=== PATIENT | female | born 1970 | race Caucasian/White ===

== ENCOUNTER → 2024-12-06 | Outpatient (CLI) | payer OTHER, SELFPAY ==
--- NOTE | 2024-12-06 12:44 | CT_ITS ---
PROCEDURE: CHEST WITH CONTRAST 12/06/2024 REASON FOR EXAM: RETROSIGMOID CA-STAGING Recent colectomy. TECHNIQUE: CHEST WITH CONTRAST Coronal and Sagittal reconstruction series were provided. CONTRAST: Isovue-300 VOLUME: 100 mL One or more dose reduction techniques were used (e.g., Automated exposure control, adjustment of the mA and/or kV according to patient size, use of iterative reconstruction technique). RADIATION DOSE SUMMARY: CTDlvol: 14.8 mGy DLP: 567.28 mGycm COMPARISON: None FINDINGS: Hardware: None Lymph nodes: No mediastinal lymph nodes. Heart and Vasculature: The heart is nonenlarged. No coronary artery calcification is seen. Thoracic aorta and pulmonary arteries are unremarkable. Lungs and Airways: The lungs are well aerated. No infiltrate or pulmonary nodule seen. Elevation of the right hemidiaphragm. Pleura: No pleural effusion. Upper Abdomen: Unremarkable Bones: Degenerative changes of the thoracic spine. CT/Chest WITH Contrast IMPRESSION: Coronary artery calcification (CAC) is is absent No pulmonary infiltrate or mass lesion. Reading Location: [id number]
[2024-12-06 13:29] LABS: CREATININE FINGERSTICK < 1.0 mg/dL (0.55-1.02); EGFR FINGERSTICK > 60.0000 mL/min (>60)
== END | disposition home or self-care (01) ==
PROVIDERS: PCP Family Medicine; Referring Provider Internal Medicine Hematology & Oncology; Visit Provider Internal Medicine Hematology & Oncology
DX: C19 Malignant neoplasm of rectosigmoid junction (principal)
CPT/HCPCS: 71260; Q9967

== ENCOUNTER 2024-12-13 08:56 | Day surgery (SDC) | payer OTHER, SELFPAY ==
[2024-12-13] VITALS (9 sets, daily range): BP systolic 125–140; BP diastolic 84–91; PULSE 71–99; RESP 16–20; TEMP 36.5–36.7; O2SAT 97–100; BMI 37.4
--- NOTE | 2024-12-13 09:11 | PCM.HP.BLA ---
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 Required: No Is patient in pain?: No Allergies No Known Allergies Allergy (Verified 11/29/24 13:54) Medications ?Medication ?Instructions ?Recorded ?Confirmed ?Type blood-glucose sensor (DexBiosensia G6 11/23/24 11/29/24 History Sensor device) blood-glucose transmitter (Dexcom 11/23/24 11/29/24 History G6 Transmitter device) estradiol 1 mg tablet 1 mg PO QDAY 11/23/24 11/29/24 History insulin pump cart,auto,BT,G6/7 11/23/24 11/29/24 History (Omnipod 5 G6-G7 Pods (Gen 5) subcutaneous cartridge) PFSH Medical History 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 The patient had rectal cancer and recently had resection. She had positive lymph nodes. ROS General General: Yes weight change, appetite, fatigue and colon cancer; No breast cancer or weakness HEENT HEENT: No difficulty swallowing, eye injury, eye surgery, swollen glands or hoarseness Endo Endocrine: Yes thyroid disease and diabetes mellitus; No thyroid cancer, Hair loss, heat intolerance or cold intolerance Skin Skin: No rash or changing moles Breast Breast: No left breast lump, right breast lump, nipple discharge, breast pain, abnormal mammogram, abnormal US or breast enlargement Musc Musculoskeletal: No back problems, arthritis, rheumatoid arthritis, gout or joint pain Cardio Cardiovascular: No murmur, pacemaker, heart disease, atrial fibrillation, high blood pressure, heart attack, heart stent, palpitations, shortness of breath with exertion or chest pain Psych Psychiatric: No depression, anxiety or hearing voices Resp Respiratory: No shortness of breath, No sleep apnea, No cough, No COPD, No asthma, No emphysema and No wheezing Gastro Gastrointestinal: No abdominal pain, No nausea or vomiting, No diarrhea, No constipation, No blood in stool, No acid reflux, No hemorrhoids, No ulcers, No gallbladder problem and No black,tarry stools Marvin Hematologic: No blood thinners, No blood disorders, No bleeding, No anemia and No blood clots Neuro Neurologic: No system reviewed and no additional complaints, except as documented, No as per HPI, No abnormal gait, No abnormal hearing, No abnormal movements, No abnormal speech, No behavioral changes, No burning sensations, No confusion, No convulsions, No disequilibrium, No dizziness, No localized weakness, No frequent falls, No headache(s), No lack of coordination, No loss of vision, No memory loss, No numbness, No other visual disturbances, No radicular pain, No restless legs, No sensory deficit, No syncope, No tingling, No tremor(s), No weakness and No other Exam Const General: cooperative Orientation: alert and oriented x3 [facility] Head: normal to inspection Neck Neck: normal visual inspection and full ROM Chest Chest palpation & inspection: normal inspection of the chest Resp Effort & Inspection: normal respiratory effort Auscultation: clear to auscultation bilaterally Cardio Rate: regular rate Rhythm: regular rhythm GI Inspection: non-distended Palpation: soft and nontender Skin General: no rashes or lesions noted Neuro General: patient alert and patient oriented x3 Extrem General: full ROM Psych Appearance: grossly normal Mental Status: mental status grossly normal Assessment and Plan Assessment and Plan (1) Encounter for insertion of venous access port: Status: Acute Plan: Patient is here for placement of chest port. I discussed right chest port placement with her in detail. I discussed the risks including but not limited to bleeding, infection, pneumothorax, line infection or DVT. Patient understands the risks and is willing to proceed. Simon Mccray MD Pager: [facility] [address] [place] [address], [address] [place] [phone] Office: I have examined the patient and the H&P has been reviewed. There are no clinical changes since date of exam.
[2024-12-13] MEDS: Lactated Ringers 1,000 ML 15 ML IV (09:31)
--- NOTE | 2024-12-13 09:57 | PCM.PRE.AN2 ---
ASA Classification* ASA Classification ASA Classification: 3 Assessment & Plan Anesthesia* Anesthesia Assessment Anesthesia Assessment: Discussed sedation and/or anesthesia options, risks, benefits, and alternatives with patient/parents/legal guardian/POA. Questions invited. The patient/parents/legal guardian/POA seems to understand and agrees to proceed with anesthesia plan. Reviewed the physical assessment, medical history, allergy history and patient home medications list prior to surgery/procedure/anesthetic and documented any changes. Performed airway and anesthesia risk assessments. Anesthesia Type Anesthesia Type: MAC History Source History Obtained from:: Patient and Chart Anesthesia Focused Assessment* Temperature: 98 F Pulse Rate: 85 Blood Pressure: 140/84 Respiratory Rate: 16 Pulse Ox: 100 Oxygen Delivery Method: Room Air Airway Assessment Mouth opens: >3 cm Mallampati Score: II Teeth Condition: Caps/Crowns (Patient has multiple crowns. They are all tight.) Neck Range of motion (ROM): Full ROM Labs Anesthesia Preop lab: CBC WBC 7.5 K/mm3 (4.4-11.0) 11/23/24 14:11/23/24 RBC 4.16 M/mm3 (4.2-5.4) L 11/23/24 14:11/23/24 Hgb 12.0 g/dL (12.0-15.0) 11/23/24 14:11/23/24 Hct 37.4 % (37-47) 11/23/24 14:33 11/23/24 Plt Count 346 K/mm3 (150-450) 11/23/24 14:11/23/24 CHEMISTRY Potassium 4.1 mmol/L (3.3-5.1) 11/23/24 14:33 11/23/24 Sodium 138 mmol/L (133-145) 11/23/24 14:11/23/24 Magnesium 2.0 mg/dL (1.5-2.2) 11/23/24 14:11/23/24 Phosphorus 4.0 mg/dL (2.7-4.5) 11/23/24 14:11/23/24 BUN 10 mg/dL (4-19) 11/23/24 14:11/23/24 Creatinine 0.66 mg/dL (0.70-1.20) L 11/23/24 14:33 11/23/24 Glucose 172 mg/dL (70-99) H 11/23/24 14:33 11/23/24 COAG Pre-Assessment Diagnosis/Proposed Procedure Planned Operative Procedure(s): INSERTION OF VASCULAR PORT RIGHT Anesthesia History 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 When Was Last Pacemaker Check QUESTION #4 FULL TEXT: You/Your Family Experience fever (hyperthermia) with Anesthesia Last Oral Intake Last Oral intake: Last Oral Intake NPO since 20:00 12/13/24 09:18 Meds taken in AM with sips of water? Meds patient instructed to take am of surgery PONV PONV - electrician substation: PONV - electrician substation Female Yes 11/30/24 10:03 HX of Motion Sickness Yes 11/30/24 10:03 HX of N/V After Surgery No 11/30/24 10:03 Non-Smoker Yes 11/30/24 10:03 Duration of Surgery greater No 11/30/24 10:03 than 60 minutes Number of Risk Factors 3 11/30/24 10:03 PONV Score Moderate Risk 11/30/24 10:03 Height & Weight Height & Weight: Anesthesia: Height & Weight Height 5 ft 5 in 12/13/24 09:18 Weight: 102.058 kg 12/13/24 09:18 Body Mass Index (BMI) 37.4 12/13/24 09:18 Respiratory Assessment Respiratory Assessment - electrician substation: Respiratory Tract Infection Hx - electrician substation Hx Respiratory Tract Infection No 11/30/24 10:03 STOP Sleep Apnea STOP Sleep Apnea - electrician substation: STOP Sleep Apnea - electrician substation Hx Hypertension No 11/30/24 10:03 Hx Sleep Apnea No 11/30/24 10:03 CPAP BIPAP Do you snore loudly (louder No 11/30/24 10:03 than talking or can be heard Do you often feel tired/ No 11/30/24 10:03 fatigued/ sleepy during daytime? Has anyone observed you stop No 11/30/24 10:03 breathing during sleep? STOP Results Negative 11/30/24 10:03 QUESTION #5 FULL TEXT : Do you snore loudly (louder than talking or can be heard through closed doors)? 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 Specify any problems Hx of Preganancy in last 3 No 11/30/24 10:03 Months Nurse Filling Out Transfusion [email or web address] 11/30/24 10:03 & Questions: Date: 11/30/24 11/30/24 10:03 Time: 10:05 11/30/24 10:03 Patient unable to answer at this time (ie. confused, unrespo /Reproduction History /Reproductive History - electrician substation: /Reproductive Hx- electrician substation Hx Now No 11/30/24 10:03 Gestational Age (in weeks): EDC: Hx Hx Para Hx Section SAB No 11/30/24 10:03 Active Medications Active Medications: Current Medications Generic Name Dose Route Start Last Admin Trade Name Freq PRN Reason Stop Dose Admin Cefazolin Sodium 2 gm/ Sodium 110 mls @ 200 mls/hr 12/13/24 10:30 Chloride IV 12/13/24 11:02 INTRAOP ONE Lactated Ringer's 1,000 mls @ 15 mls/hr 12/13/24 09:15 12/13/24 09:31 IV 15 mls/hr .Q48H MOHINI Administration PFSH Medical History Encounter for education Wears glasses Cancer Alcohol use Insulin dependent diabetes mellitus Dietary restriction Non-smoker 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 Depression Anxiety Home Medications ?Medication ?Instructions ?Recorded ?Last Taken ?Type blood-glucose sensor (Dexcom G6 11/23/24 Unknown History Sensor device) blood-glucose transmitter (Dexcom 11/23/24 Unknown History G6 Transmitter device) estradiol 1 mg tablet 1 mg PO QDAY 11/23/24 Unknown History insulin pump cart,auto,BT,G6/7 11/23/24 Unknown History (Omnipod 5 G6-G7 Pods (Gen 5) subcutaneous cartridge) lidocaine-prilocaine 2.5 %-2.5 % 1 applic topical ONCE PRN port 12/06/24 Unknown Rx topical cream access 30 days #30 grams ondansetron 8 mg disintegrating 8 mg PO Q8H PRN nausea and 12/06/24 Unknown Rx tablet vomiting #30 tabs prochlorperazine maleate 10 mg 10 mg PO Q6H PRN nausea and 12/06/24 Unknown Rx tablet vomiting #30 tabs Allergy/AdvReac Type Severity Reaction Status Date / Time No Known Allergies Allergy Verified 12/13/24 09:15 Family History Sister Cancer Pancreatic, dx at age 56 Thyroid disorder Mother COPD (chronic obstructive pulmonary disease) Thyroid disorder Surgical History History of section S/P laparoscopic cholecystectomy S/P TREVOR (total abdominal hysterectomy) S/P laparoscopic colectomy Social History Smoking Status: Never smoker alcohol intake: never substance use type: marijuana Review of Systems (Anesthesia) ROS Narrative System reviewed and no additional complaints, except as documented.
[2024-12-13] MEDS: Lactated Ringers 1,000 ML 1000 ML IV (10:13)
[2024-12-13] MEDS: Midazolam 2 MG/2 ML Syringe IV (10:13)
[2024-12-13] MEDS: Cefazolin 1 GM/5 ML Vial 2 GM IV (10:19)
[2024-12-13] MEDS: Lidocaine 1% (5 ml sdv) 5 ML Vial IV (10:20)
[2024-12-13] MEDS: Lidocaine 1%/Epi 1:200 (30ml) 30 ML AMPUL (10:27)
--- NOTE | 2024-12-13 10:47 | OP.PCM_ITS ---
Operative Report (Standard) Operative Information Date of Procedure: 12/13/24 Pre-Operative Diagnosis: Rectal cancer need for vascular access for chemotherapy Post-Operative Diagnosis: Same Surgery/Procedure Performed: Ultrasound and fluoroscopy guided right chest port placement utilizing right IJ paintings conservator: No Type of Anesthesia: Local MAC RN Documented Start/Stop Times: Operation Date: 12/13/24 10:30 Case Time Into Pre-Op 12/13/24 08:59 Out of Pre-Op 12/13/24 10:10 Anesthesia Start 12/13/24 10:13 Into Room 12/13/24 10:13 Procedure Start 12/13/24 10:28 Procedure End 12/13/24 10:41 Anesthesia End 12/13/24 10:43 Out of Room 12/13/24 10:43 Procedure Start Time: 10:28 Procedure Stop Time: 10:41 Select all DRAINS/GRAFTS/IMPLANTS that apply: Implanted device Implanted device details: 8 Frisian PowerPort Estimated Blood Loss: 5 Specimen collected: No Description of surgery: After obtaining informed consent patient was brought back to the operating room MAC anesthesia was induced and the right chest and neck were prepped in normal sterile fashion. Ultrasound was used to evaluate both IJs and the right IJ was selected. Next, using a needle, the right IJ was accessed and a guidewire was passed on into the superior vena cava under fluoroscopy guidance. A small incision was made over the puncture site and the dilator introducer was placed over the guidewire. Next this was capped and the pocket was made for the port. 1% lidocaine with epinephrine was injected in the proposed port site. An incision was made with scalpel. Electrocautery was used to make a pocket under the skin and subcutaneous tissue. Hemostasis was obtained. Next, the catheter was tunneled up to the neck incision site and placed through the introducer. The peel-away introducer was removed and the position of the catheter was confirmed on fluoroscopy. Next, the catheter was trimmed and attached to the port with the locking device. Interrupted 2-0 Vicryl sutures were used to anchor the port to the chest wall and then the port was placed inside the pocket. The pocket was then flushed with saline and the port irrigated with saline. There was good blood return and the port flushed easily. Next, heparin was injected into the port. The skin was closed with subcutaneous interrupted 3-0 Vicryl sutures. A single 3-0 Vicryl sutures placed under the skin at the neck incision site. Steri-Strips were placed as well as op sites. Patient tolerated procedure well, was taken to PACU in stable condition. Chest x-ray will be obtained. Surgical Findings: None Complications Complications: No Admit VTE Documentation VTE Mechan Device Prophylaxis: SCD's
--- NOTE | 2024-12-13 10:48 | EX.PCM.DISCH ---
Discharge Instructions Procedure Port-A-Cath Diet Discharge Diet: Light diet - advance as tolerated (Pain medication may cause nausea. You should typically eat light foods as you take your pain medication.) Activity Discharge Activity: Return to Normal Activity and May Shower (with your bandage in place in 1-2 days after surgery. DO NOT SHOWER WHEN YOUR PORT IS ACCESSED.) Lifting Restrictions: 15 lbs for 2 days Additional Activity Instructions:: Alternate ibuprofen and Tylenol for pain control Dressing / Incision Call your doctor if your incision/area has: Continuous Slow Oozing, Sudden Increased Bleeding, Increased Pain/ Swelling, Increased Redness and Foul Smelling Discharge Call your doctor if you observe: Fever of 101 or Higher Remove Dressing in: 2 days Cleanse incision/area with: Soap & Water Follow Up Care Please Follow Up With: Simon Mccray MD When: as needed [phone] Test Results: Test results from this visit will be discussed in further detail at your follow-up appointment, if applicable. Discharge Plan Admission Attending Provider: Simon Mccray Primary Care Provider: Mark Worthy Instructions Print Language: Singaporean Discharge Orders/Prescriptions Prescriptions: No Action (DME) Dexcom G6 Sensor Device See Rx Instructions .Route Rx Instructions: As directed (DME) Dexcom G6 Transmitter Device See Rx Instructions .Route Rx Instructions: As directed estradiol 1 mg tablet 1 mg PO QDAY Rx Instructions: off 1 week; repeat cycle (DME) Omnipod 5 G6-G7 Pods (Gen 5) Cartridge See Rx Instructions .Route Rx Instructions: As directed lidocaine-prilocaine 2.5-2.5 % cream 1 applic topical ONCE PRN (Reason: port access) 30 Days Qty: 30 2RF ondansetron 8 mg tablet,disintegrating 8 mg PO Q8H PRN (Reason: nausea and vomiting) Qty: 30 2RF prochlorperazine maleate 10 mg tablet 10 mg PO Q6H PRN (Reason: nausea and vomiting) Qty: 30 2RF Referrals / Follow Up: Mark Worthy MD [Primary Care Provider] - Disposition Disposition (needs filled in before D/C Order can be placed): Home, Self Care
--- NOTE | 2024-12-13 10:50 | RAD_ITS ---
PROCEDURE: CXR FOR LINE PLACEMENT 12/13/2024 REASON FOR EXAM: LINE PLACEMENT TECHNIQUE: Procedure Code: RADCXRLP Modality: DX Procedure: CXR FOR LINE PLACEMENT COMPARISON: None FINDINGS: A right-sided port a catheter has been placed. The tip is at the junction of the superior vena cava and right atrium. Heart size is upper limits of normal. No evidence of pneumothorax. There is elevation of the left hemidiaphragm. RAD/CXR for Line Placement IMPRESSION: The tip of the right-sided port a catheter is at the junction of the superior v saad cava and right atrium. Reading Location: [facility]
--- NOTE | 2024-12-13 10:50 | PCM.POST.ANE ---
Anesthesia: Postop Eval I Current Vital Signs Temperature: 98.0 F Pulse Rate: 77 Blood Pressure: 135/89 Respiratory Rate: 20 Pulse Ox: 100 Oxygen Delivery Method: Room Air Assessment Airway patent: Yes Spontaneous unlabored respirations: Yes Mental status: Awake and Calm nausea: No Vomiting: No Anesthesia Complication: No Fluid Hydration Crystalloid volume administer (ml): 600 Total IV fluid infused: 600 Progress Note Anesthesia document: Postop Eval 1 completed: Yes
--- NOTE | 2024-12-13 14:37 | POSTOPAN2_ITS ---
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
--- NOTE | 2024-12-13 14:37 | PCM.POSTANE2 ---
Anesthesia Postop Eval I Sum Postop Eval Completion status Anesthesia document: Postop Eval 1 completed: Yes Anesthesia Postop Eval I Summary Anesthesia Postop Eval I Summary: Anesthesia Postop Eval I: Assessment Summary Airway patent Yes 12/13/24 10:51 [email or web address] Spontaneous unlabored Yes 12/13/24 10:51 [email or web address] respirations Mental status Awake,Calm 12/13/24 10:51 [email or web address] nausea No 12/13/24 10:51 [email or web address] Vomiting No 12/13/24 10:51 [email or web address] Anesthesia Postop Eval I: Fluid Summary Crystalloid volume administer 600 12/13/24 10:51 [email or web address] (ml) Colloids volume administered ( ml) Blood Product volume administered (ml) Total IV fluid infused 600 12/13/24 10:51 [email or web address] Anesthesia Postop Eval I: Summary Notes Anesthesia Complication No 12/13/24 10:51 [email or web address] Anesthesia Complication Comment: Post-operative progress note Anesthesia: Postop Eval II Evaluation Mental status: Awake Pain Level: 1 nausea: No Vomiting: No
== END 2024-12-13 11:55 | disposition home or self-care (01) ==
LOC: SDC 08:58 → AC 09:01
PROVIDERS: PCP Family Medicine; Referring Provider Surgery; Visit Provider Surgery
PROC: (CPT 36561; principal; 2024-12-13 10:15)
DX: Z45.2 Encounter for adjustment and management of vascular access device (principal); C20 Malignant neoplasm of rectum; E10.9 Type 1 diabetes mellitus without complications
CPT/HCPCS: 36561; 00532; 71045; 77001; 82962; C1788

== ENCOUNTER 2025-01-21 10:20 | Emergency (ER) | payer OTHER, SELFPAY ==
[2025-01-21 10:21] VITALS: BP 163/113; PULSE 113; RESP 16; TEMP 36.3; O2SAT 100; BMI 36.5
--- NOTE | 2025-01-21 10:28 | ED.VIS.GI ---
HPI HPI - GI History of Present Illness Chief Complaint: Abd Pain Informant: patient Abdominal Pain/Flank Pain Onset: Days (3) Context: Gradual Onset Timing: Continuous Quality: Cramping Location: Diffuse and LLQ (Worse in left lower quadrant) Worsened by: Nothing Relieved by: Nothing Nausea/Vomiting/Emesis GI Symptom: Positive for Nausea and Vomiting Onset: Days (3) Quality: Positive for Nonbilious Diarrhea/Melena/Hematochezia GI Symptom: Negative for Diarrhea, Melena or Hematochezia Associated Symptoms Associated Symptoms: Positive for Frequency and Hematuria; Negative for Dysuria Narrative Narrative: Patient presents with abdominal pain that has been getting worse over the past 3 days. Patient admits to some nausea and vomiting. Patient states she recently underwent chemotherapy. Patient states she is unable to keep anything down. Patient states her emesis is dark yellow emesis. Patient denies any hematemesis or coffee-ground emesis. Patient states she has been constipated. Patient does admit to some urinary frequency and questionable hematuria. Patient states her pain is cramping. Patient states it is diffuse but worse in the left lower quadrant. Patient states the pain radiates into her back. Patient admits to some subjective chills and sweats. Patient admits to some pain in her chest after vomiting but denies any other chest pain. Patient denies any shortness of breath or cough. 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 Depression Anxiety Home Medications ?Medication ?Instructions ?Recorded ?Last Taken ?Type blood-glucose sensor (Dexcom G6 11/23/24 Unknown History Sensor device) blood-glucose transmitter (Dexcom 11/23/24 Unknown History G6 Transmitter device) estradiol 1 mg tablet 1 mg PO QDAY 11/23/24 Unknown History insulin pump cart,auto,BT,G6/7 11/23/24 Unknown History (Omnipod 5 G6-G7 Pods (Gen 5) subcutaneous cartridge) lidocaine-prilocaine 2.5 %-2.5 % 1 applic topical ONCE PRN port 12/06/24 Unknown Rx topical cream access 30 days #30 grams ondansetron 8 mg disintegrating 8 mg PO Q8H PRN nausea and 12/06/24 Unknown Rx tablet vomiting #30 tabs metoclopramide HCl 10 mg tablet 10 mg PO Q6H PRN nausea and 01/19/25 Unknown Rx (Reglan) vomiting #120 tabs omeprazole 20 mg capsule,delayed 20 mg PO DAILY #30 CAPSULES 01/21/25 Unknown Rx release promethazine 25 mg rectal 25 mg RECTAL Q6H PRN PRN Nausea ##6 01/21/25 Unknown Rx suppository (Promethegan) Allergy/AdvReac Type Severity Reaction Status Date / Time No Known Allergies Allergy Verified 01/21/25 10:21 Family History Sister Cancer Pancreatic, dx at age 56 Thyroid disorder Mother COPD (chronic obstructive pulmonary disease) Thyroid disorder Surgical History H/O insertion of central venous access port History of section S/P laparoscopic cholecystectomy S/P TREVOR (total abdominal hysterectomy) S/P laparoscopic colectomy Social History (Updated 01/21/25 @ 11:11 by Carmen Rudd) housing: house Smoking Status: Never smoker alcohol intake: never substance use type: marijuana ROS ROS ED Constitutional Constitutional ED: Reports chills, subjective and sweats; Denies fever(s) Eyes Eyes: Denies blurry vision or change in vision ENT ENT ED: Denies rhinorrhea or sore throat Cardiovascular Cardiovascular: Reports chest pain; Denies palpitations Respiratory/Chest Respiratory/Chest: Denies cough or dyspnea Gastrointestinal Gastrointestinal: Reports abdominal pain, constipation, nausea and vomiting; Denies melena Genitourinary Genitourinary ED: Reports hematuria and urinary frequency; Denies dysuria Musculoskeletal Musculoskeletal: Reports back pain and neck pain Integumentary Denies abscess or rash Neurologic Neurologic: Reports headache(s); Denies weakness Allergic/Immunologic Allergic/Immunologic ED: Denies mouth swelling or urticaria EXAM Physical Exam Const Vital Signs: 01/21/25 10:21 01/21/25 11:09 01/21/25 12:00 Temperature 97.3 F L 97.8 F 98 F Temperature Source Temporal Oral Oral Pulse Rate 113 H 88 77 Respiratory Rate 16 20 H 16 Blood Pressure 163/113 H 163/110 H 157/89 H Blood Pressure Mean 129 127 111 Pulse Ox 100 100 100 Oxygen Delivery Method Room Air Room Air Room Air 01/21/25 13:00 Temperature 98 F Temperature Source Oral Pulse Rate 88 Respiratory Rate 20 H Blood Pressure 150/84 H Blood Pressure Mean 106 Pulse Ox 100 Oxygen Delivery Method Room Air Positive well nourished and well developed Constitutional Narrative: BMI is 36.5. General Appearance ED: well developed and NAD HEENT Reports moist mucous membranes Neck supple and no JVD Resp normal respiratory effort and clear to auscultation bilaterally Cardio regular rhythm Rate: tachycardic GI non-distended Palpation: soft and tender epigastric, LLQ and LUQ; Negative for guarding or rebound tenderness present Extremity full ROM General Extremety ED: Negative for edema or tenderness General Extremity: Negative for edema Neuro CN's II-XII intact bilaterally, moves all extremities and no sensory deficits noted Sensorium / Orientation: alert Motor Exam: strength 5/5 throughout Psych mental status grossly normal and thought process normal MDM MDM MDM Narrative Medical decision making narrative: Differential diagnosis includes bowel obstruction, perforation, diabetic ketoacidosis, urinary tract infection, pancreatitis, diverticulitis, colitis, electrolyte abnormality, dehydration, and chemotherapy-induced nausea and vomiting. CBC will be obtained to assess for leukocytosis and anemia. Comprehensive metabolic profile will be obtained to assess for hepatic function, renal function, and electrolyte abnormality. Lipase will be obtained to assess for pancreatitis. Urinalysis will be obtained to assess for urinary tract infection, glucosuria, and ketonuria. Venous blood gas will be obtained to assess for diabetic ketoacidosis. Beta hydroxybutyrate will be obtained to assess for diabetic ketoacidosis. CT scan of the abdomen and pelvis will be obtained to assess for bowel obstruction, perforation, colitis, and diverticulitis. History & Record Review Additional record(s) reviewed:: Prior inpatient record and Prior outpatient record Lab Data Attestation: I reviewed the patient's lab results. Lab results narrative: CBC was reviewed and was within normal limits. Urinalysis was reviewed. Urine ketones were 150. Comprehensive metabolic profile was reviewed. Glucose was mildly elevated at 230. Total bilirubin was slightly elevated at 1.38. The remainder is within normal limits. Lipase was reviewed and was normal at 16. Beta hydroxybutyrate was reviewed and was slightly elevated at 1.4. Labs: Laboratory Results - last 24 hr 01/21/25 01/21/25 10:55 11:04 WBC 5.0 RBC 4.43 Hgb 13.0 Hct 38.0 MCV 85.8 MCH 29.3 MCHC 34.2 D RDW Std Deviation 42.8 RDW Coeff of [place] 14.1 Plt Count 222 MPV 10.1 Immature Gran % (Auto) 0.600 Neut % (Auto) 71.9 H Lymph % (Auto) 19.0 [place] % (Auto) 6.1 Eos % (Auto) 1.6 Baso % (Auto) 0.8 Absolute Neuts (auto) 3.6 Absolute Lymphs (auto) 0.94 Nucleated RBC % 0 Sodium 135 Potassium 3.9 Chloride 101 Carbon Dioxide 19.7 L Anion Gap 15 BUN 14 Creatinine 0.69 L Estim Creat Clear Calc 111.40 Est GFR (MDRD) Non-Af 104 BUN/Creatinine Ratio 20.3 H Glucose 230 H Calcium 8.9 Total Bilirubin 1.38 H AST 21 ALT 17 Alkaline Phosphatase 76 Total Protein 7.1 Albumin 4.1 Globulin 3.1 Albumin/Globulin Ratio 1.3 Lipase 16 b-Hydroxybutyric mmol/L 1.4 H Urine Color Yellow Urine Clarity Clear Urine pH 6.0 Ur Specific [place] 1.025 Urine Protein 30 H Urine Glucose (UA) 1000 H Urine Ketones 150 A* Urine Occult Blood 10 H Urine Nitrite Negative Urine Bilirubin 1 H Urine Urobilinogen 1 H Ur Leukocyte Esterase 25 H Urine RBC 0 SEEN Urine WBC 0-5 SEEN Ur Squamous Epith Cells 10-25 SEEN Urine Bacteria 1+ Urine Mucus 1+ ABG Data Attestation: I personally reviewed and interpreted this ABG as follows: Interpretation: Venous blood gas was reviewed. There is a respiratory alkalosis with a pH of 7.5 and a pCO2 of 28.9. Bicarb was slightly low at 23.2. ABG results: ABG 01/21/25 11:09 Specimen Type LITA Sample Site Not entered VBG pH 7.51 H VBG pO2 36 VBG HCO3 23 VBG Total CO2 24 VBG O2 Sat (Calc) 77 H VBG Base Excess 0 POC Mix VBG pCO2 Pt Tmp 28.9 L O2 Delivery Device Not entered Radiography Diagnostic Testing: Clinical Impression(s) from Imaging Studies Abdomen/Pelvis CT 01/21/25 12:15 IMPRESSION: 1. There is no acute process in the abdomen or pelvis. 2. Postsurgical changes at the rectosigmoid junction. No suspicious bowel mass. No bowel obstruction. Reading Location: [id number] scan of the abdomen and pelvis was obtained. There is no acute abdominal process noted. There are postsurgical changes at the rectosigmoid junction. There is no evidence of obstruction. There is no free air or free fluid. This was interpreted by the radiologist was also independently reviewed by myself. Treatment and Re-Evaluation :: Patient was given IV fluids, morphine, and Zofran. Patient was feeling somewhat better on reevaluation. Patient still complaining of some burning in her upper chest. Patient was advised of her findings. Patient states she has Zofran ODT at home but this makes her nauseated. Patient was given a prescription for Phenergan suppositories. Patient was given a prescription for omeprazole. Patient was instructed to follow-up with her primary care physician and oncologist in 3 to 5 days. Discharge Plan Triage Chief Complaint: Abd Pain ED Provider: Natan Rodriguez Dx/Rx/DC Orders Clinical Impression: CINV (chemotherapy-induced nausea and vomiting), Type I diabetes mellitus, Rectosigmoid cancer Instructions: ED Vomiting (Adult) Prescriptions: New promethazine [Promethegan] 25 mg suppository 25 mg RECTAL Q6H PRN PRN (Reason: Nausea) Qty: 6 0RF omeprazole 20 mg capsule,delayed release(DR/EC) 20 mg PO DAILY Qty: 30 0RF No Action (DME) Dexcom G6 Sensor Device See Rx Instructions .Route Rx Instructions: As directed (DME) Dexcom G6 Transmitter Device See Rx Instructions .Route Rx Instructions: As directed estradiol 1 mg tablet 1 mg PO QDAY Rx Instructions: off 1 week; repeat cycle (DME) Omnipod 5 G6-G7 Pods (Gen 5) Cartridge See Rx Instructions .Route Rx Instructions: As directed lidocaine-prilocaine 2.5-2.5 % cream 1 applic topical ONCE PRN (Reason: port access) 30 Days Qty: 30 2RF ondansetron 8 mg tablet,disintegrating 8 mg PO Q8H PRN (Reason: nausea and vomiting) Qty: 30 2RF metoclopramide HCl [Reglan] 10 mg tablet 10 mg PO Q6H PRN (Reason: nausea and vomiting) Qty: 120 0RF Primary Care Provider: Mark Worthy Referrals: Mark Worthy MD [Primary Care Provider, Family Practice] - 3-5 Days Kamilla Wells [employer] OPERATOR, GR[employer]ING [employer] OPERATOR-C [Med Staff - [facility] Practice Prof, Oncology] - 3-5 Days Activity Restrictions/Additional Instructions: Do not take the Phenergan suppositories and the Reglan on the same day. You may take 1 or the other but not both. Print Language: [place] Disposition Disposition: Home, Self Care
[2025-01-21] MEDS: 0.9% Normal Saline (1000mL) 1,000 ML 999 ML IV (11:05)
[2025-01-21 11:08] LABS: Red Blood Cells-Urine 0 SEEN /hpf (0-5)
[2025-01-21 11:09] VITALS: BP 163/110; PULSE 88; RESP 20; TEMP 36.6; O2SAT 100
[2025-01-21 11:10] LABS: Color, Urine Yellow (Yellow); Glucose, Dipstick 1000 mg/dl (Normal); Leukocyte Esterase-Dipstick 25 /ul (Negative); Nitrite-Dipstick Negative (Negative); Occult Blood-Urine 10 /ul (Negative); Protein-Dipstick 30 mg/dl (Negative); Specific Gravity, Urine 1.025 (1.002-1.030)
[2025-01-21 11:11] LABS: Hematocrit 38.0 % (37-47); Hemoglobin 13.0 g/dL (12.0-15.0); Immature Granulocytes Count 0.030 X10^3/uL (0.0-0.0); Mean Corp Hgb Conc 34.2 g/dL (32-36); Mean Corpuscular Volume 85.8 fL (81-99); Mean Platelet Vol. 10.1 fl (6.2-12.0); NRBC Flagged by Analyzer 0 % (0-5); Platelet Count 222 K/mm3 (150-450); RBC Distribution Width CV 14.1 % (11.6-14.6); RBC Distribution Width SD 42.8 fl (35.1-43.9); Red Blood Count 4.43 M/mm3 (4.2-5.4); White Blood Count 5.0 K/mm3 (4.4-11.0)
[2025-01-21 11:11] LABS: Urine Bilirubin Dipstick 1 mg/dL (Negative)
[2025-01-21 11:12] LABS: SITE Not entered; VBG BASE EXCESS 0 mmol/L (-1.0-3.5); VBG PO2 36 mmHg (25-40); VBG SO2 77 % (50-70); VBG TCO2 24 mmol/L (23-33)
[2025-01-21 11:12] LABS: Ketone-Dipstick 150 mg/dl (Negative)
[2025-01-21 11:22] LABS: Mucous, Urine 1+ /hpf (<or=2+); Squamous Epithelial Cells - UA 10-25 SEEN /hpf (5-10)
[2025-01-21 12:00] VITALS: BP 157/89; PULSE 77; RESP 16; TEMP 36.6; O2SAT 100
[2025-01-21 12:06] LABS: AST(SGOT) 21 U/L (<=31); Alanine Aminotransfer ALT/SGPT 17 U/L (<=34); Albumin, Serum 4.1 g/dL (3.5-5.0); Alkaline Phosphatase 76 U/L (35-104); Anion Gap 15 (5-15); BETA-HYDROXYBUTYRATE 1.4 mmol/L (0.0-0.3); BUN 14 mg/dL (4-19); BUN/Creat Ratio 20.3 RATIO (10-20); Calcium,Total 8.9 mg/dL (7.6-11.0); Carbon Dioxide 19.7 mmol/L (21.0-32.0); Chloride 101 mmol/L (98-108); Estimated Creatinine Clearance 111.40 ml/min (50-250); Globulin 3.1 g/dL (2.2-4.2); Glucose 230 mg/dL (70-99); Lipase 16 U/L (13-75); Potassium 3.9 mmol/L (3.3-5.1)
--- NOTE | 2025-01-21 12:15 | CT_ITS ---
PROCEDURE: ABDOMEN/PELVIS W IV CONT ONLY 01/21/2025 REASON FOR EXAM: ABDOMINAL PAIN TECHNIQUE: Procedure Code: [id number] Modality: CT Procedure: ABDOMEN/PELVIS W IV CONT ONLY Coronal and Sagittal reconstruction series were provided. CONTRAST: Isovue 370 VOLUME: 100 mL One or more dose reduction techniques were used (e.g., Automated exposure control, adjustment of the mA and/or kV according to patient size, use of iterative reconstruction technique. RADIATION DOSE SUMMARY: CTDlvol: 22.21 mGy DLP: 1250.85 mGycm COMPARISON: 11/03/2024 FINDINGS: Lung bases: Clear Liver: Vague 0.5 cm hypodensity in the right hepatic lobe series 2 image 20. Mild intrahepatic biliary ductal prominence, stable and likely related to prior cholecystectomy... Gallbladder: Surgically absent. Spleen: Normal size. Pancreas: Within normal limits Adrenals: Normal Kidneys: Normal renal sizes. No hydronephrosis. Bladder: Nondistended Reproductive Organs: Prior hysterectomy. Adnexal regions are unremarkable. Bowel: Postsurgical changes at the rectosigmoid junction. No bowel obstruction. Appendix: Not definitely visualized. Lymph nodes: No suspicious lymph node enlargement. Vasculature: Unremarkable Peritoneum / Retroperitoneum: There is no ascites Bones: Within normal limits CT/Abdomen/Pelvis W IV Cont ONLY IMPRESSION: 1. There is no acute process in the abdomen or pelvis. 2. Postsurgical changes at the rectosigmoid junction. No suspicious bowel mass . No bowel obstruction. Reading Location: [id number]
[2025-01-21 13:00] VITALS: BP 150/84; PULSE 88; RESP 20; TEMP 36.6; O2SAT 100
[2025-01-21 13:53] VITALS: BP 150/84; PULSE 88; RESP 20; TEMP 36.6; O2SAT 100
== END 2025-01-21 13:55 | disposition home or self-care (01) ==
PROVIDERS: Emergency Provider Emergency Medicine; PCP Family Medicine; Visit Provider Emergency Medicine
DX: R10.32 Left lower quadrant pain (principal); C19 Malignant neoplasm of rectosigmoid junction; E10.9 Type 1 diabetes mellitus without complications; Z79.4 Long term (current) use of insulin; T45.1X5A Adverse effect of antineoplastic and immunosuppressive drugs, initial encounter; Z92.21 Personal history of antineoplastic chemotherapy; Z90.49 Acquired absence of other specified parts of digestive tract; Z90.710 Acquired absence of both cervix and uterus
CPT/HCPCS: 36591; 74177; 80053; 81001; 82010; 82803; 83690; 85025; 96361; 96374; 96375; 99284; Q9967; A4216; J2405